=== PATIENT | male | born 1990 | race Caucasian/White ===

== ENCOUNTER 2016-07-31 14:20 | Emergency (ER) | payer BC, OTHER ==
[2016-07-31 14:33] VITALS: BP 132/80
[2016-07-31] MEDS ORDERED: Diazepam 5 MG Tab PO ONE (14:53)
[2016-07-31] MEDS ORDERED: Ketorolac 30 MG/ML SDV IVPUSH ONE (14:53)
--- NOTE | 2016-07-31 16:11 | EDM.PDOC ---
ED HPI GENERAL MEDICAL PROBLEM - General Chief Complaint: Back Pain or Injury Stated Complaint: [facility] Time Seen by Provider: 07/31/16 14:40 Source of Information: Reports: Patient History Limitations: Reports: No Limitations - History of Present Illness INITIAL COMMENTS - FREE TEXT/NARRATIVE: 26-year-old male arrives via EMS for evaluation and treatment of low back pain. Patient reports that he was at work. He was attempting to lower a large piece of glass, with several other worker,s to the ground. Patient reports he was using good body mechanics and lifting with his legs until he was several inches from the ground when he felt that his low back develop significant pain. He reports significant pain to the low back. Denies hearing any popping, cracking, etc. He laid down on the concrete for several minutes. After about 15 minutes he was able to get up and walk but experienced severe pain. EMS was called and transported him to the ER. No medications given en route as the patient declined pain medication. IV placed en route. He is currently complaining of low back pain. States it is located across his lower back. Denies any numbness or tingling to length distally. Denies any bowel or bladder incontinence. Patient is otherwise healthy with no medical conditions. No history of back problems. Onset: Today, Sudden Location: Reports: Back Context: Reports: Lifting Treatments [employer]: Reports: Other Medication(s) Other Treatments [employer]: motrin Lower Back Pain Score (Numeric/FACES): 4 - Related Data Allergies Allergy/AdvReac Type Severity Reaction Status Date / Time No Known Allergies Allergy Verified 10/27/13 20:42 Home Meds: Home Meds Hydrocodone/Acetaminophen [[place] 5-325] 1 tab PO Q4H PRN #6 tablet 07/31/16 [Rx] Orphenadrine [Norflex] 100 mg PO BID #20 tab.er 07/31/16 [Rx] Past Medical History - Past Health History Medical/Surgical History: Denies Medical/Surgical History Other Musculoskeletal History: left elbow dislocated; right wrsit fracture with plate,pins and screws, left patella fracture Social & Family History - Tobacco Use Smoking Status *Q: Current Every Day Smoker Years of Tobacco use: 7 Packs/Tins Daily: 0.3 - Caffeine Use Caffeine Use: Reports: Energy Drinks, Soda - Alcohol Use Days Per Week of Alcohol Use: 2 Number of Drinks Per Day: 3 Total Drinks Per Week: 6 - Recreational Drug Use Recreational Drug Use: No ED ROS GENERAL - Review of Systems Review Of Systems: See Below GI/Abdominal: Denies: Stool Incontinence : Denies: Incontinence Musculoskeletal: Reports: Back Pain (lower back pain) Neurological: Denies: Numbness, Tingling ED EXAM,LOWER BACK PAIN/INJURY - Physical Exam Exam: See Below Exam Limited By: No Limitations General Appearance: Alert, WD/WN, No Apparent Distress Throat/Mouth: Normal Inspection, Normal Lips, No Airway Compromise Respiratory/Chest: No Respiratory Distress, Lungs Clear, Normal Breath Sounds Cardiovascular: Normal Peripheral Pulses, Regular Rate, Rhythm, No Murmur Back Exam: Normal Inspection, Muscle Spasm (left lower back around l5), Paraspinal Tenderness (l3-l5). No: Vertebral Tenderness Neurological: Alert, Normal Mood/Affect, Normal Dorsiflexion, Normal Plantar Flexion, Straight Leg Raise (R) (causes minor discomfort to the low back), Difficulty Walking. No: Straight Leg Raise (L) Psychiatric: Normal Affect, Normal Mood Skin Exam: Warm, Dry, Normal Color Course - Vital Signs Last Recorded V/S: Last Vital Signs Temp 37.6 C 07/31/16 14:32 Pulse 80 07/31/16 14:32 Resp 20 07/31/16 14:32 BP 132/80 07/31/16 14:32 Pulse Ox 98 07/31/16 14:32 - Orders/Labs/Meds Meds: Medications Discontinued Medications Generic Name Dose Route Start Last Admin Trade Name Pita PRN Reason Stop Dose Admin Diazepam 5 mg 07/31/16 14:53 07/31/16 15:00 Valium. PO 07/31/16 14:54 5 mg ONETIME ONE Administration Ketorolac Tromethamine 30 mg 07/31/16 14:53 07/31/16 15:00 Toradol IVPUSH 07/31/16 14:54 30 mg ONETIME ONE Administration - Re-Assessments/Exams Free Text/Narrative Re-Assessment/Exam: 07/31/16 15:01 I discussed with the patient options of obtaining x-rays. However, I feel this is most likely a muscle strain and x-rays would not show any muscular injury. I feel at this time we should defer x-rays and work with medications. I will give him some Toradol and Valium. 07/31/16 16:01 Patient reports significant improvement in his back pain. He has been able to get up and walk with nursing staff and on his own. His been able do this safely. We will discharge him home. Discharge instructions as documented. Departure - Departure Time of Disposition: 16:06 Disposition: Home, Self-Care 01 Condition: fair Clinical Impression: Muscle spasm of back - Discharge Information Prescriptions: Hydrocodone/Acetaminophen [[place] 5-325] 1 tab PO Q4H PRN #6 tablet PRN Reason: Pain Orphenadrine [Norflex] 100 mg PO BID #20 tab.er Instructions: Muscle Cramps and Spasms Referrals: PCP,None [Primary Care Provider] - Forms: ED Department Discharge Additional Instructions: Take norflex 1 tab PO bid. This medication is for muscle relation. Do not drive or operate machinery until you know how this medication can affect you as this medication can make you drowsy. Take OTC aleve bid. This will help with pain and inflammation. Take norco 1-2 tabs PO every 4-6 hours prn sever pain. Do not drive or operate machinery within 12 hours of taking the norco. Burlington can be habit forming, I recommend he take his to these as needed to control her pain. Follow up with family medicine if you're not better in 7-10 days. Recommend Tamela Galo or Tomer Thapa at the [facility], [place], operated by [facility]. Call [phone] to schedule with one of them. Utilize heat to the back. Recommend moist heat 4-5 times a day for 10-15 minutes. Please return to the ER should your symptoms change or worsen.
== END 2016-07-31 16:45 | disposition home or self-care (01) ==
LOC: JD.ED 14:20
DX: M62.830 Muscle spasm of back (principal); F17.210 Nicotine dependence, cigarettes, uncomplicated; Z98.890 Other specified postprocedural states
CPT/HCPCS: 96374; 99283; A9270; J1885; 99284